=== PATIENT | male | born 2000 | race African-American/Black ===

== ENCOUNTER 2025-03-30 16:16 | Emergency (ER) | payer MEDICAID ==
[~2025-03-30] VITALS: Ht 180.3 cm; Wt 60.0 kg
[2025-03-30 16:26] VITALS: O2SAT 99
[2025-03-30] MEDS ORDERED: IBUP-2028 MT (17:35)
[2025-03-30 19:32] VITALS: BP 129/91; PULSE 83; RESP 15; TEMP 36.8; O2SAT 100
== END 2025-03-30 19:35 | disposition home or self-care (01) ==
LOC: ER 16:16
DX: S60.511A Abrasion of right hand, initial encounter (principal); S30.811A Abrasion of abdominal wall, initial encounter; S20.319A Abrasion of unspecified front wall of thorax, initial encounter; Z98.890 Other specified postprocedural states; Y04.0XXA Assault by unarmed brawl or fight, initial encounter; Y93.89 Activity, other specified; Y92.89 Other specified places as the place of occurrence of the external cause; Y99.8 Other external cause status
CPT/HCPCS: 29130; 71045; 73120; 99284